=== PATIENT | female | born 1985 | race Caucasian/White ===

== ENCOUNTER 2017-09-27 00:08 | Emergency (ER) | payer SELFPAY ==
--- NOTE | 2017-09-27 00:17 | EDM.PDOC ---
ED HPI GENERAL MEDICAL PROBLEM - General Chief Complaint: Abdominal Pain Stated Complaint: CROHNS FLAREUP Time Seen by Provider: 09/27/17 00:36 Source of Information: Reports: Patient History Limitations: Reports: No Limitations - History of Present Illness INITIAL COMMENTS - FREE TEXT/NARRATIVE: 32-year-old female presents to the ED with diffuse abdominal pain particularly rectal pressure discomfort like she has to defecate but is been able to do so. She has associated severe nausea but has not been able to vomit. She has a history of Crohn disease diagnosed at age 17 but for the most part she seems to control his very well with diet and she reports regular exercise. Bowels are for the most part formed up without diarrhea certainly no mucus or blood. 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 This took surgery to resolve. Has been on remittive agents in the past but is currently on no medications. She's been traveling from [place] over the last several days up through [place] and is traveling through [facility]. She had to stop that a reststop due to the feeling of wanting to vomiting when travelling through [facility]. She has had no previous abdominal surgery. She is currently at the tail end of her period which is lasted 5 days. It is on time and as expected. Onset: Sudden, Other Onset Date: 09/26/17 Duration: Hour(s): Location: Reports: Abdomen (Diffuse abdominal cramping pain with pressure in the rectal vault with the need to defecate but unable to do so.) Quality: Reports: Ache, Other Severity: Moderate (Moderate cramps.) Improves with: Reports: None ( Pain 5 or 6 out of 10) Worsens with: Reports: None Context: Denies: Activity, Exercise, Lifting, Sick Contact, Trauma, Other Associated Symptoms: Reports: Nausea/Vomiting (Nausea with). Denies: No Other Symptoms, Confusion, Chest Pain, Cough, Rash, Seizure ( strong feeling of need to vomit but unable to do so.), Shortness of Breath, Syncope Treatments [employer]: Reports: Other (see below) (None.) Abdomen Pain Score (Numeric/FACES): 3 - Related Data Allergies Allergy/AdvReac Type Severity Reaction Status Date / Time hydromorphone HCl Allergy Itching Verified 09/27/17 00:18 [From Dilaudid] infliximab [From Remicade] Allergy Cannot Verified 09/27/17 00:18 Remember morphine Allergy Itching Verified 09/27/17 00:18 Home Meds: Home Meds . [No Known Home Meds] 03/02/15 [History] Past Medical History Other Gastrointestinal History: Chrohns disease--diagnosed at age 17 when she developed a perianal fistula. Is on remittive agents for a period of time and has been on steroids in a couple of occasions over the years but has been pretty well-controlled since 2010 with diet only. She is currently on no medications for her Crohn's. Ever has bloody stools or mucus only stools. Other Immunologic History: Chrohns disease - Past Surgical History Other GI Surgeries/Procedures: rectal abscess drained Social & Family History - Tobacco Use Smoking Status *Q: Never Smoker Second Hand Smoke Exposure: No - Alcohol Use Days Per Week of Alcohol Use: 4 Number of Drinks Per Day: 3 Total Drinks Per Week: 12 - Recreational Drug Use Recreational Drug Use: No Drug Use in Last 12 Months: Yes Recreational Drug Type: Reports: Marijuana/Hashish Recreational Drug Use Frequency: Socially - Living Situation & Occupation Living situation: Reports: Single (Self-employed.) Occupation: Employed ED ROS GENERAL - Review of Systems Review Of Systems: See Below Constitutional: Reports: Chills, Malaise, Decreased Appetite. Denies: Fever HEENT: Reports: No Symptoms Respiratory: Reports: No Symptoms Cardiovascular: Reports: No Symptoms Endocrine: Reports: No Symptoms GI/Abdominal: Reports: Abdominal Pain (Cramping abdominal pain and a lot of pressure in the rectal vault with a feeling of need to defecate but unable to do so.), Decreased Appetite, Nausea. Denies: Constipation, Diarrhea, Vomiting, Other : Reports: No Symptoms, Other (Is currently on her fifth day of menstrual cycle.) Musculoskeletal: Reports: No Symptoms Skin: Reports: No Symptoms Neurological: Reports: No Symptoms Psychiatric: Reports: No Symptoms Hematologic/Lymphatic: Reports: No Symptoms ED EXAM, GI/ABD - Physical Exam Exam: See Below Exam Limited By: No Limitations General Appearance: Alert, Moderate Distress (In obvious discomfort with intermittent abdominal cramping pain.) Eyes: Bilateral: Normal Appearance (No jaundice.) Throat/Mouth: Normal Inspection, Normal Lips, Normal Teeth, Normal Oropharynx Head: Atraumatic, Normocephalic Neck: Normal Inspection, Supple, Non-Tender, Full Range of Motion. No: Carotid Bruit, Lymphadenopathy (L), Lymphadenopathy (R) Respiratory/Chest: Lungs Clear, Normal Breath Sounds, No Accessory Muscle Use, Chest Non-Tender, Prolonged Expiration Cardiovascular: Normal Peripheral Pulses, Regular Rate, Rhythm, No Edema, No Gallop, No Murmur GI/Abdominal Exam: Distended (Slightly hyperactive bowel sounds. Mildly distended and tympanitic to percussion.), Tender (Generalized tenderness more in the epigastrium and suprapubic area.), Abnormal Bowel Sounds. No: Guarding, Rigid, Rebound Back Exam: Normal Inspection, Full Range of Motion. No: CVA Tenderness (L), CVA Tenderness (R) Extremities: Normal Inspection, Normal Range of Motion, Non-Tender, No Pedal Edema Neurological: Alert, Oriented, CN II-XII Intact, Normal Cognition, Normal Gait Psychiatric: Normal Affect, Normal Mood Skin Exam: Warm, Dry, Intact, Normal Color, No Rash Course - Vital Signs Last Recorded V/S: Last Vital Signs Temp 37.0 C 09/27/17 00:14 Pulse 86 09/27/17 00:14 Resp 16 09/27/17 00:14 BP 129/84 09/27/17 00:14 Pulse Ox 100 09/27/17 00:14 - Orders/Labs/Meds Orders: Active Orders 24 hr Category Date Time Status Enema [RC] ASDIRECTED Care 09/27/17 01:42 Active Abdomen 1V Flat [CR] Stat Exams 09/27/17 00:46 Ordered URINALYSIS W/MICROSCOPIC [UA W/MICROSCOPIC] [URIN] Stat Lab 09/27/17 00:30 Ordered Dextrose 5%-0.9% NaCl [Dextrose 5%-Normal Saline] 1,000 Med 09/27/17 00:45 Active ml IV ASDIRECTED Medication Orders Dextrose/Sodium Chloride (Dextrose 5%-Normal Saline) 1,000 mls @ 999 mls/hr IV ASDIRECTED RONNIE Last Admin: 09/27/17 00:42 Dose: 999 mls/hr Labs: Laboratory Tests 09/27/17 09/27/17 09/27/17 Range/Units 00:30 00:41 00:41 WBC 6.01 (3.98-10.04) K/mm3 RBC 4.56 (3.98-5.22) M/mm3 Hgb 11.3 (11.2-15.7) gm/L Hct 34.9 (34.1-44.9) % MCV 76.5 L (79.4-94.8) fl MCH 24.8 L (25.6-32.2) pg MCHC 32.4 (32.2-35.5) g/dl RDW Std Deviation 41.0 (36.4-46.3) fL Plt Count 263 (182-369) K/mm3 MPV 10.2 (9.4-12.3) fl Neutrophils % (Manual) 63 H (40-60) % Band Neutrophils % 0 (0-10) % Lymphocytes % (Manual) 16 L (20-40) % Atypical Lymphs % 3 % Monocytes % (Manual) 13 H (2-10) % Eosinophils % (Manual) 5 (0.7-5.8) % Basophils % (Manual) 0 L (0.1-1.2) Platelet Estimate Adequate Plt Morphology Comment Normal Hypochromasia 1+ slight Poikilocytosis 2+ moderate Anisocytosis 1+ slight Microcytosis 1+ slight Macrocytosis 1+ slight Tear Drop Cells 1+ slight Ovalocytes 1+ slight RBC Morph Comment Abnormal Sodium 139 (136-145) mEq/L Potassium 3.7 (3.5-5.1) mEq/L Chloride 105 (98-107) mEq/L Carbon Dioxide 22 (21-32) mEq/L Anion Gap 15.7 H (5-15) BUN 9 (7-18) mg/dL Creatinine 1.0 (0.55-1.02) mg/dL Est Cr Clr Drug Dosing 94.93 mL/min Estimated GFR (MDRD) > 60 (>60) mL/min BUN/Creatinine Ratio 9.0 L (14-18) Glucose 93 (74-106) mg/dL Calcium 8.9 (8.5-10.1) mg/dL Total Bilirubin 0.6 (0.2-1.0) mg/dL AST 34 (15-37) U/L ALT 42 (14-59) U/L Alkaline Phosphatase 88 (46-116) U/L C-Reactive Protein 0.3 (<1.0) mg/dL Total Protein 7.1 (6.4-8.2) g/dl Albumin 3.8 (3.4-5.0) g/dl Globulin 3.3 gm/dL Albumin/Globulin Ratio 1.2 (1-2) Lipase 135 (73-393) U/L Urine Color Yellow (Yellow) Urine Appearance Clear (Clear) Urine pH 7.0 (5.0-8.0) Ur Specific [place] 1.020 (1.005-1.030) Urine Protein Negative (Negative) Urine Glucose (UA) Negative (Negative) Urine Ketones Negative (Negative) Urine Occult Blood 2+ H (Negative) Urine Nitrite Negative (Negative) Urine Bilirubin Negative (Negative) Urine Urobilinogen 0.2 (0.2-1.0) Ur Leukocyte Esterase Negative (Negative) Urine RBC 0-5 (0-5) /hpf Urine WBC 0-5 (0-5) /hpf Ur Epithelial Cells 5-10 H (0-5) /hpf Urine Bacteria Few (FEW) /hpf Urine Mucus Not seen (FEW) /hpf Meds: Medications Generic Name Dose Route Start Last Admin Trade Name Freq PRN Reason Stop Dose Admin Dextrose/Sodium Chloride 1,000 mls @ 999 mls/hr 09/27/17 00:45 09/27/17 00:42 Dextrose 5%-Normal Saline IV 999 mls/hr ASDIRECTED RONNIE Administration Discontinued Medications Generic Name Dose Route Start Last Admin Trade Name Freq PRN Reason Stop Dose Admin Diphenhydramine HCl 25 mg 09/27/17 00:43 09/27/17 00:47 Benadryl IVPUSH 09/27/17 00:44 25 mg ONETIME ONE Administration Hydromorphone HCl 0.5 mg 09/27/17 00:33 09/27/17 00:46 Dilaudid IVPUSH 09/27/17 00:34 0.5 mg ONETIME ONE Administration Magnesium Citrate 240 ml 09/27/17 01:41 09/27/17 03:05 Citrate Of Magnesia PO 09/27/17 01:42 240 ml ONETIME ONE Administration Metoclopramide HCl 10 mg 09/27/17 00:33 09/27/17 00:46 Reglan IVPUSH 09/27/17 00:34 10 mg ONETIME ONE Administration - Radiology Interpretation Free Text/Narrative:: 32-year-old female presents the ED with diffuse abdominal discomfort described as mild cramping with associated strong nausea but unable to vomit. Strong rectal pressure discomfort like she needs to defecate but unable to do so. Last bowel movement she believes was yesterday. She has a history of Crohn's disease diagnosed at age 17 by a perianal abscess development. This required surgical intervention. She was subsequently placed on remittive agents soap which she is no longer on. She has been on prednisone a few occasions over the last 10 years. The most part her Crohn's disease seems to have settled and is controlled by diet and exercise. He is currently on no medications for her Crohn 's disease. Bowels are usually formed up normal without blood or mucus. No trouble voiding and has no feeling or signs or symptoms of urinary tract infection. Early at the end of her menstrual cycle day 5. Plan IV D5 normal saline at open. Reglan 10 mg IV with Benadryl 25 mg IV and Dilaudid 0.5 mg IV for pain relief. Patient reports that she does develop severe itching with morphine and it has occurred on occasion with Benadryl in the past. She is therefore requesting Benadryl with the Dilaudid. She was under a mythology that Dilaudid caused permanent problems with nerves in your spine.. Therefore some clear she really has a true allergy to the medication. - Re-Assessments/Exams Free Text/Narrative Re-Assessment/Exam: 09/27/17 01:30 Labs reveal a normal white count at 6.01. Differential reveals 63 % neutrophils and no bands hemoglobin is 11.3 with hematocrit of 34.9. MCV is 76.5 suggesting iron deficiency. The slight suggests 1+ anisocytosis 1+ microcytosis 1+ macrocytosis 1+ teardrop cells and 1+ ovalocytes. This would suggest some degree of splenomegaly. Chemistry is normal. Anion gap is slightly elevated at 15.7. Glucose is 93. Calcium is 8.9. Liver function normal C- reactive protein 0.3 lipase normal at 135.. Urinalysis shows 2+ occult blood but she is at the end of her period there are no red cells reported on the micro -. There is 5-10 epithelials. No signs of infection 09/27/17 01:42 KUB reveals extensive constipation involving most of the colon. There is a fairly large stool bolus in the rectal vault. She has continuous pressure in the rectal area and need to defecate but unable to do so it suspicious that this represents a fairly hard stool bolus. She will therefore be given a Fleet enema with mineral oil to provide acute relief. She can then take Citroma 8 ounces mixed with 6 ounces of juice by mouth later today to provide bowel cleanse. 09/27/17 03:16 patient reports she only got a little bit of stool with the Fleet enema with mineral at all. She will be discharged home with Citroma to take later this morning. Departure - Departure Time of Disposition: 03:10 Disposition: Home, Self-Care 01 Condition: Fair Clinical Impression: Constipation by delayed colonic transit Abdominal pain Qualifiers: Abdominal location: lower abdomen, unspecified Qualified Code(s): R10.30 - Lower abdominal pain, unspecified - Discharge Information Instructions: Constipation, Adult, [id number], Abdominal Pain, Adult, Easy-to -Read Referrals: PCP,None [Primary Care Provider] - Forms: ED Department Discharge Additional Instructions: Evaluation the emergency room today in regards to acute onset of severe lower abdominal pressure discomfort and pain. Associated nausea without vomiting. She of Crohn's disease diagnosed at age 17 and by history seems to be fairly quiescent disease process over the last 5-10 years. Lab work done reveals no evidence of active infection or inflammation of the bowel. X-ray of the abdomen shows increased stool throughout the entire colon compatible was significant constipation. Treatment is therefore a Fleet enema with mineral oil to provide relief of impacted hard stool in the rectal vault. Provide some relief of the constant pressure in the rectal vault and feeling of need to defecate but unable to do so. I would suggest use of Citroma or magnesium citrate 8 ounces by mouth with 4-5 ounces of juice taken by mouth once when you get your final destination or later today when you are close to the bathroom. He usually takes an hour or 2 to work and will usually make her bowels work for 5 times ending in mild diarrhea. If problems with constipation that are fairly frequent than I would suggest utilizing a medication called MiraLAX powder which she can buy at [employer] or any [employer]. 1 scoop daily or every other day would keep your bowls very regular. Of course drinking plenty of fluids including water and increasing her diet and fiber and vegetables will also help alleviate constipation issues. - My Orders Last 24 Hours: My Active Orders 09/27/17 00:30 URINALYSIS W/MICROSCOPIC [UA W/MICROSCOPIC] [URIN] Stat 09/27/17 00:45 Dextrose 5%-0.9% NaCl [Dextrose 5%-Normal Saline] 1,000 ml IV ASDIRECTED 09/27/17 00:46 Abdomen 1V Flat [CR] Stat 09/27/17 01:42 Enema [RC] ASDIRECTED - Assessment/Plan Last 24 Hours: My Active Orders 09/27/17 00:30 URINALYSIS W/MICROSCOPIC [UA W/MICROSCOPIC] [URIN] Stat 09/27/17 00:45 Dextrose 5%-0.9% NaCl [Dextrose 5%-Normal Saline] 1,000 ml IV ASDIRECTED 09/27/17 00:46 Abdomen 1V Flat [CR] Stat 09/27/17 01:42 Enema [RC] ASDIRECTED
[2017-09-27 00:18] VITALS: BP 129/84
[2017-09-27] MEDS ORDERED: Metoclopramide 10 MG/2 ML SDV IVPUSH ONE (00:33)
[2017-09-27] MEDS ORDERED: HYDROmorphone 0.5 MG/0.5 ML SYRINGE IVPUSH ONE (00:33)
[2017-09-27] MEDS ORDERED: diphenhydrAMINE 50 MG/ML SDV IVPUSH ONE (00:43)
[2017-09-27] MEDS ORDERED: Dextrose 5%-0.9% NaCl 1,000 ML IV SCH (00:45)
[2017-09-27] MEDS ORDERED: Magnesium Citrate Solution 296 ML Bottle PO ONE (01:41)
--- NOTE | 2017-09-27 08:06 | CR ---
Abdomen: Supine view of the abdomen was obtained. Comparison: No prior abdominal x-ray. Bowel gas pattern is normal. No abnormal calcifications or soft tissue abnormality is seen. Bony structures are unremarkable. Impression: 1. No abnormality is seen on supine abdominal x-ray. Diagnostic code #1
== END 2017-09-27 03:05 | disposition home or self-care (01) ==
LOC: JD.ED 00:08
DX: K59.01 Slow transit constipation (principal); K50.90 Crohn's disease, unspecified, without complications; R11.0 Nausea; Z88.8 Allergy status to other drugs, medicaments and biological substances; Z88.5 Allergy status to narcotic agent; Z88.6 Allergy status to analgesic agent
CPT/HCPCS: 36415; 74018; 80053; 81001; 83690; 85025; 86140; 96361; 96374; 96375; 99284; A9270; J1170; J1200; J2765; J7042